=== PATIENT | male | born 1970 | race Caucasian/White ===

== ENCOUNTER 2022-09-27 03:06 | Day surgery (SDC) | payer BC, OTHER, SELFPAY ==
[2022-09-17 09:52] VITALS: BMI 37.3
[2022-09-27] MEDS: LACTATED RINGERS 1,000 ML 150 ML IV CONT (12:41)
--- NOTE | 2022-09-27 12:44 | P.HP_ITS ---
History of Present Illness History of Present Illness Consent: Risks, benefits, and alternatives have been discussed and questions answered. Patient agrees to proceed with procedure. Chief complaint: neoplasm screening Narrative: Mike Dias is a 51 year old male Presents for screening colonoscopy. Patient's current weight appetite and bowel movements are normal. Patient denies abdominal pain. He has had no bleeding. Family history is noncontributory. Review of Systems Review of Systems: Review of systems noncontributory. [facility] Past Medical History Medical History Diabetes HTN (hypertension) Social History Social History Smoking status: Never smoker Alcohol intake: never Alcohol use details: rarely Substance use: never Substance use type: does not use Living arrangements: with family Occupation/Education: occupation Gender identity (if verbalized by the patient): Male Spiritual care concerns: No Meds Home Medications and Allergies Home Medications Medication Instructions Recorded Confirmed Type atorvastatin 40 mg tablet 40 mg PO QHS #90 tabs 08/21/22 09/17/22 Rx losartan 50 mg-hydrochlorothiazide 1 tablet PO DAILY #90 tabs 08/21/22 09/17/22 Rx 12.5 mg tablet metformin 500 mg tablet,extended 1,000 mg PO BID #360 tabs 08/21/22 09/17/22 Rx release 24 hr metoprolol succinate 25 mg 25 mg PO DAILY 08/21/22 09/17/22 History tablet,extended release 24 hr Allergies Allergy/AdvReac Type Severity Reaction Status Date / Time hops Allergy Anaphylaxis Verified 09/17/22 10:00 chic peas Allergy Anaphylaxis Uncoded 09/17/22 10:00 Exam Narrative: Physical exam reveals patient to be alert. Vital signs stable. HEENT exam is unremarkable. Patient is anicteric. Lungs are clear to auscultation and percussion. Heart is without murmur or extra sounds. Abdomen bowel sounds are present soft nontender with no organomegaly. Digital external rectal exam is normal. Assessment and Plan Assessment and plan (1) Encounter for screening colonoscopy: Code(s): Z12.11 - Encounter for screening for malignant neoplasm of colon Status: Acute Assessment and Plan: Patient presents today for screening colonoscopy. He appears to be at average risk for colon polyps. Further recommendations will be given after endoscopy.
--- NOTE | 2022-09-27 12:45 | P.PNAN_ITS ---
Anes - Initial Pre Proc Eval Procedure: Operation Date: 09/27/22 13:00 Proposed Procedures p Colonoscopy - Oswaldo Schofield MD Date/Time: 09/27/22 12:45 Surgeon: Oswaldo Schofield MD Pre Op Diagnosis: neoplasm screening Patient Data Age: 51 Gender: M Height: 1.88 m Weight: 132 kg Allergies Allergy/AdvReac Type Severity Reaction Status Date / Time hops Allergy Anaphylaxis Verified 09/17/22 10:00 chic peas Allergy Anaphylaxis Uncoded 09/17/22 10:00 Home Medications Medication Instructions Recorded Confirmed Type atorvastatin 40 mg tablet 40 mg PO QHS #90 tabs 08/21/22 09/17/22 Rx losartan 50 mg-hydrochlorothiazide 1 tablet PO DAILY #90 tabs 08/21/22 09/17/22 Rx 12.5 mg tablet metformin 500 mg tablet,extended 1,000 mg PO BID #360 tabs 08/21/22 09/17/22 Rx release 24 hr metoprolol succinate 25 mg 25 mg PO DAILY 08/21/22 09/17/22 History tablet,extended release 24 hr Patient hx anesthesia problems: none Family hx anesthesia problems: none Results Review: All pre-operative results and documents have been reviewed as part of the pre- operative evaluation. [facility] Past Medical History Medical History (Updated 09/27/22 @ 12:46 by Oswaldo Schofield MD) Diabetes HTN (hypertension) Hyperlipidemia Obesity Social History Social History Smoking status: Never smoker Alcohol intake: never Alcohol use details: rarely Substance use: never Substance use type: does not use Living arrangements: with family Occupation/Education: occupation Gender identity (if verbalized by the patient): Male Spiritual care concerns: No Anes - Eval Final PreProcedure Day of Procedure 09/27/22 12:45 Patient weight: obese Heart: regular rate and rhythm Lungs: clear to auscultation and normal air movement Airway: Mallampati scale class II Neurological: alert and oriented Last oral intake: >/= 8 hours ASA classification: III Emergent: no Anesthetic plan: proceed Anesthesia type and monitoring: general GIVS Results Review: All pre-operative results and documents have been reviewed as part of the pre- operative evaluation. Informed Consent: The patient's anesthetic plan and its attendant risks and benefits were discussed with the patient/family/POA. Questions were solicited and answers provided to the satisfaction of the patient/family/POA.
[2022-09-27 12:50] LABS: Glucose Point of Care 164 mg/dl (65-105)
[2022-09-27 12:56] VITALS: BP 138/84; PULSE 89; RESP 20; TEMP 36.2; O2SAT 98; BMI 37.8
[2022-09-27 14:22] VITALS: BP 105/71; PULSE 69; RESP 13; O2SAT 93
[2022-09-27 14:32] VITALS: BP 107/71; PULSE 68; RESP 13; O2SAT 94
[2022-09-27 14:42] VITALS: BP 115/74; PULSE 64; RESP 14; O2SAT 95
== END 2022-09-27 14:52 | disposition home or self-care (01) ==
PROVIDERS: PCP Physician Assistant Medical; Visit Provider Internal Medicine Gastroenterology
PROC: 0DJD8ZZ Inspection of Lower Intestinal Tract, Via Natural or Artificial Opening Endoscopic (ICD-10-PCS; CPT 45378; principal; 2022-09-27 13:00)
DX: Z12.11 Encounter for screening for malignant neoplasm of colon (principal); K63.5 Polyp of colon; K64.8 Other hemorrhoids; I10 Essential (primary) hypertension; E78.5 Hyperlipidemia, unspecified; E11.9 Type 2 diabetes mellitus without complications; E66.9 Obesity, unspecified; Z68.37 Body mass index [BMI] 37.0-37.9, adult; Z79.82 Long term (current) use of aspirin
CPT/HCPCS: 45385; 82948; 88305; J2704; J7120

== ENCOUNTER 2023-08-08 11:08 | Emergency (ER) | payer BC, OTHER, SELFPAY ==
--- NOTE | ~2023-08-08 | XR_ITS ---
XR chest 1V portable DATE: 08/08/2023 14:12 INDICATION: Shortness of breath, elevated blood pressure TECHNIQUE: Portable upright AP view on 08/08/2023 at 1410 hours COMPARISON: None FINDINGS: Normal heart size. No hilar or mediastinal enlargement. Mildly increased density of the lef t lung versus the right may be due to mild rotation. No pleural effusion or pulmonary vascular congestion or pneumothorax is detected. IMPRESSION: Limited portable study; no apparent active cardiopulmonary disease Reviewed, dictated and finalized at location B.
[2023-08-08 11:22] VITALS: BP 143/70; PULSE 69; RESP 20; TEMP 36.3; O2SAT 99
[2023-08-08 13:49] VITALS: BP 146/89; PULSE 71; RESP 18; O2SAT 98
--- NOTE | 2023-08-08 14:02 | ECG_ITS ---
Measurements Intervals [place] Rate: 66 P: 12 NC: 169 QRS: 5 QRSD: 97 T: 51 QT: 396 QTc: 415 Interpretive Statements SINUS RHYTHM BASELINE ARTIFACT- I, II, III, AVR, AVL, AVF NORMAL ECG NO PREVIOUS ECG AVAILABLE FOR COMPARISON Electronically Signed On 08-08-2023 15:03:53 CDT by Kraig German D.O.
--- NOTE | 2023-08-08 14:02 | ED.RECABL ---
HPI - Recheck/Abnormal Lab/Rx General Chief Complaint: Recheck/Abnormal Lab/Rx Stated Complaint: HTN Time Seen by Provider: 08/08/23 12:34 History of Present Illness HPI narrative: patient is a 52-year-old male with a history of hypertension, diabetes, hyperlipidemia presenting with hypertension. States that he was feeling tense and anxious this morning so he checked his blood pressure and it was 193/111. He became short of breath and thinks that he had a panic attack. States that his PCP recently increased his losartan due to high blood pressures. Currently states that he still feels a bit tense but he denies any pain or shortness of breath. No leg swelling. No vision changes, numbness or weakness. No further complaints. Related Data Home Medications Medication Instructions Recorded Confirmed metoprolol succinate 25 mg 25 mg PO DAILY 08/21/22 08/08/23 tablet,extended release 24 hr Allergies Allergy/AdvReac Type Severity Reaction Status Date / Time hops Allergy Anaphylaxis Verified 08/08/23 12:07 chic peas Allergy Anaphylaxis Uncoded 08/08/23 12:07 Review of Systems Review of Systems: All systems reviewed & are unremarkable except as noted in HPI and below PMFSH Past Medical History Medical History Diabetes HTN (hypertension) Hyperlipidemia Obesity Social History Social History Smoking status: Never smoker Alcohol intake: never Alcohol use details: rarely Substance use: never Substance use type: does not use Living arrangements: with family Occupation/Education: occupation Gender identity (if verbalized by the patient): Male Spiritual care concerns: No Exam Narrative: GENERAL: Well-appearing, In no acute distress, pleasant cooperative HEAD: Normocephalic, atraumatic. EYES: PERRLA and EOMI. ENT: grossly unremarkable NECK: Supple. CHEST: Clear to auscultation. No respiratory distress. HEART: Regular rate and rhythm. EXTREMITIES: Normal range of motion. No edema. SKIN: Warm, dry, no rash. NEURO: No focal deficits. Alert and oriented x3. PSYCH: Normal mood and affect. Course Vital Signs Vital signs: Vital Signs Temperature 97.3 F L 08/08/23 11:22 Pulse Rate 69 03/22/24 11:22 Respiratory Rate 20 08/08/23 11:22 Blood Pressure 143/70 H 08/08/23 11:22 Pulse Oximetry 99 08/08/23 11:22 Oxygen Delivery Room Air 08/08/23 11:22 Temperature 97.3 F L 08/08/23 11:22 Pulse Rate 71 08/08/23 13:49 Respiratory Rate 18 08/08/23 13:49 Blood Pressure 146/89 H 08/08/23 13:49 Pulse Oximetry 98 08/08/23 13:49 Oxygen Delivery Room Air 08/08/23 11:22 MDM - Recheck/Abnormal Lab/Rx MDM Narrative Medical decision making narrative: 52-year-old male presenting with high blood pressure an episode of shortness of breath. Blood pressures here are actually okay. 140s over 70s to 80s. Remainder of vitals are normal. Exam remarkable for the above. EKG per my interpretation shows normal sinus rhythm, no ST elevations or depressions. Blood work is unremarkable. Normal renal function. Undetectable troponin. Patient continues to feel well. Denies any complaints. Feel he is safe for outpatient management. Advised PCP follow-up. Appropriate return precautions given. Patient is agreeable with this plan. Discharged in stable condition. Differential Diagnosis Differential diagnosis: Likely other (hypertension, asymptomatic hypertension, anxiety, shortness of breath) Medical Records Attestation: I reviewed the patient's medical records. Lab Data Attestation: I reviewed the patient's lab results. 08/08/23 15:07 08/08/23 15:07 Labs: Lab Results 08/08/23 Range/Units 15:07 WBC 7.7 (4.5-10.0) K/mm3 RBC 5.30 (4.6-6.20) M/mm3 Hgb 16.3 (14.0-18.0) g/dL Hct 48.5 (42.0-52.0) % MCV 91.5
[2023-08-08 15:13] LABS: Basophils Absolute Auto 0.1 K/mm3 (0.0-0.1); Basophils Percent Auto 0.8 % (0.2-1.2); Eosinophils Absolute Auto 0.2 K/mm3 (0-0.3); Eosinophils Percent Auto 2.1 % (0-4.4); Hematocrit 48.5 % (42.0-52.0); Hemoglobin 16.3 g/dL (14.0-18.0); Immature Granulocyte Absolute 0.03 K/mm3 (0.00-0.031); Immature Granulocyte Percent A 0.4 % (0-0.5); Lymphocytes Absolute Auto 1.77 K/mm3 (0.9-3.2); Mean Corpuscular HGB Conc 33.6 g/dl (32-36); Mean Corpuscular Hemoglobin 30.8 pg (26-34); Mean Corpuscular Volume 91.5 fl (80-100); Mean Platelet Volume 11.6 fl (7.4-10.4); Monocytes Absolute Auto 0.5 K/mm3 (0.1-0.6); Monocytes Percent Auto 6.5 % (2.6-8.5); Neutrophils Absolute Auto 5.2 K/mm3 (1.3-6.7); Neutrophils Percent Auto 67.2 % (45.5-73.1); Platelet Count Result 194 k/mm3 (150-375); Red Cell Distribution Width 12.7 % (11.5-14.5); White Blood Count 7.7 K/mm3 (4.5-10.0)
[2023-08-08 15:23] LABS: Anion Gap 6 mmol/L (8-16); Blood Urea Nitrogen 14 mg/dL (9-20); Calcium 10.5 mg/dL (8.4-10.2); Carbon Dioxide 31 mmol/L (22-30); Chloride 102 mmol/L (98-107); Estimated CRCL calculation 108 ml/min; Estimated Glomerular Filt Rate > 60; Glucose 155 mg/dL (65-110); Potassium 4.3 mmol/L (3.4-5.0); Sodium 139 mmol/L (137-145)
[2023-08-08 15:35] LABS: Troponin I < 0.012 ng/mL (0.000-0.034)
== END 2023-08-08 16:50 | disposition home or self-care (01) ==
PROVIDERS: Emergency Provider Emergency Medicine; PCP Physician Assistant Medical
DX: I10 Essential (primary) hypertension (principal); F41.9 Anxiety disorder, unspecified; E11.9 Type 2 diabetes mellitus without complications; E78.5 Hyperlipidemia, unspecified; E66.9 Obesity, unspecified; Z68.36 Body mass index [BMI] 36.0-36.9, adult; Z79.84 Long term (current) use of oral hypoglycemic drugs
CPT/HCPCS: 36415; 71045; 80048; 84484; 85025; 93005; 99284